=== PATIENT | male | born 1985 | race Two or more races ===

== ENCOUNTER 2023-11-16 14:04 | Emergency (ER) | payer OTHER ==
[2023-11-16 14:12] VITALS: BP 165/89; PULSE 97; RESP 18
[2023-11-16 15:17] LABS: BASO % 0.5 % (0-2.0); EOS % 1.9 % (0-4.5); HEMATOCRIT 37.6 % (35.4-49); HEMOGLOBIN 12.2 GM/dL (11.7-16.9); LYMPH % 14.2 % (8-40); MCH 27.6 pg (25.7-33.7); MCHC 32.4 g/dl (32.0-35.9); MEAN CELL VOLUME 85.3 fl (80-96); MEAN PLT VOLUME 6.6 fl (7.5-11.1); MONO % 6.5 % (3.8-10.2); NEUT % 76.9 % (42.8-82.8); PLATELET COUNT 292 10^3/uL (134-434); RDW 12.3 % (11.9-15.9); WHITE BLOOD COUNT 4.8 K/mm3 (4.0-10.0)
[2023-11-16 15:41] VITALS: TEMP 97.7
[2023-11-16 16:03] LABS: POTASSIUM 4.2 mmol/L (3.5-5.1)
[2023-11-16 16:05] LABS: ALBUMIN 4.4 g/dl (3.4-5.0); BLOOD UREA NITROGEN 8.2 mg/dL (7-18)
[2023-11-16 16:09] LABS: CREATININE 0.8 mg/dL (0.55-1.3)
[2023-11-16 16:11] LABS: BILIRUBIN,TOTAL 0.5 mg/dL (0.2-1); TOT PROT 8.1 g/dl (6.4-8.2)
== END 2023-11-16 17:23 | disposition home or self-care (01) ==
LOC: JER 14:04
DX: R42 Dizziness and giddiness (principal); R00.2 Palpitations; R51.9 Headache, unspecified; R53.1 Weakness
CPT/HCPCS: 36415; 71046-TC-FY; 80053; 83735; 84439; 84443; 84484; 85025; 93005; 93010; 99285-25